=== PATIENT | female | born 1990 | race Caucasian/White ===

== ENCOUNTER 2018-09-16 07:44 | Inpatient (IN) | payer OTHER ==
--- NOTE | 2018-09-16 08:34 | HP ---
General Information - Reason for Visit Contractions starting at 0430 - General Information Maternal Age: 27 Grav: 2 Para: 1 SAB: 0 IEA: 0 Estimated Due Date: 09/17/18 Determined By: LMP Maternal Blood Type and Rh: A Positive - Results this Serology/RPR Result: Non-Reactive Rubella Result: Immune HBsAg Result: Negative HIV Result: Negative GBS Culture Result: Negative Past Medical History Delivery History: Hx Uncomplicated Vaginal Delivery Pertinent Past Medical History: Non-Contributory - eczema Pertinent Past Surgical History: See Records - wisdom tooth extraction Pertinent Family History: Non-Contributory - Antepartal Records Antepartal Records: Reviewed, Uncomplicated Review of Systems Constitutional: Comfortable CV Complaint: No Respiratory: Shortness of Breath: No Gastrointestinal: No Nausea/Vomiting, Diarrhea Genitourinary: No Dysuria, No Bleeding, No Leaking Fluid Musculoskeletal: No Epigastric Pain, Contractions Neurological: No Headache, No Visual Changes Movement: Normal Exam Allergies/Adverse Reactions: Allergies Penicillins Allergy (Verified 09/16/18 08:05) Hives T-98.5, BP-120/68, P-64 R-18 - Measurements Height: 5 ft 3 in Weight: 60.328 kg Weight in lbs: [id number] Body Mass Index (BMI): 23.6 Pre- Weight: 48.988 kg Weight Gained This : 25 lbs and 0 ozs - Exam Breast: Breast Exam Deferred CVA: No CVA Tenderness Extremities: No Edema Heart: Normal Rhythm/Heart Sounds HEENT: No Significant Findings Lungs: Clear Bilaterally Rectal: Rectal Exam Deferred Reflexes: DTR 2+ Thyroid: No Thyromegaly - Abdominal Exam Abdomen Exam: Non-Tender - Ultrasound/Biophysical Profile Ultrasound Status: Not Done Targeted Exam Findings See L&D Outpatient Visit Provider Note for Findings: N/A Estimated Weight: 6# Cervical Exam: 6cm Effacement: 100% Station: 0 Presenting Part: Vertex Membrane Status: Intact Bleeding/Discharge: None EFM Findings - External Monitor Findings Baseline Heart Rate: 125 External Monitor Findings: Accelerations Present, No Pattern of Variable or Late Decelerations, Variability Moderate, Baseline Stable Contractions: Regular, Strong, >90 Seconds Contraction Frequency: 3-4 minutes Assessment/Plan - Assessment at 39 6/7 in active labor with intact membranes, no evidence of acidemia - Plan Plan: Admit - Anticipate Vaginal Delivery - Date/Time of Admission Date of Admission: 09/16/18 Time of Admission: 08:00
[2018-09-16] MEDS ORDERED: Dibucaine 1% 28.35 GM TUBE PR PRN (10:54)
[2018-09-16] MEDS ORDERED: Acetaminophen TAB* 325 MG PO PRN (10:54)
[2018-09-16] MEDS ORDERED: Glycerin ADULT SUPP PR PRN (10:54)
[2018-09-16] MEDS ORDERED: Witch Hazel PAD* JAR TOPICAL PRN (10:54)
[2018-09-16] MEDS ORDERED: Ibuprofen TAB* 600 MG ONE (11:01)
[2018-09-16] MEDS: Ibuprofen TAB* 600 MG PO PRN (11:02)
--- NOTE | 2018-09-16 11:16 | PROCNOTE ---
[facility] OB: Delivery Note - Delivery A Date of : 09/16/18 Time of : 10:26 [place] Sex: Female Weight at : 8 lb Score 1 Minute: 9 Gestational Age in Weeks and Days at Delivery: 39 Weeks and 6 Days Delivery Method: Spontaneous Vaginal Labor: Spontaneous Did Patient attempt ?: N/A, No Previous Amniotic Fluid: Clear Estimated Blood Loss: 150 Anesthesia/Analgesia: None Delivered By: Shayla Terrazas - Nursery Level of Nursery: Regular/Bedside - Perineum Perineal Injury: None/Intact - Right labial abrasion, hemostatic and not repaired Perineal Repair: None - Events Delivery Events of Note: None Apply - Risk for Falls Other Risk for Falls: none - Additional Delivery Notes Additional Delivery Notes: Patient admitted in active labor, quickly into tub for pain management. Progression to complete with urge to push. LOL 5'36", pushed 8 min. Baby born OA to MELISA at 1026, shoulders following with maternal efforts. Mother reached down to pull baby up out of water to chest. Baby with spontaneous cry and eyes open immediately. HR>110. Patient moved @ approx 5 minutes to bed. Cord doubly clamped and cut by FOB. Placenta delivered Schultze with gentle cord traction @ 1036. Perineum intact. Fundus firm to massage. EBL 150ml. Baby "Massiel [place]" at breast to initiate . Mother and baby stable and well.
[2018-09-16] MEDS: Docusate CAP* 100 MG PO SCH ×2 (13:57→20:11)
[2018-09-17] MEDS: Ibuprofen TAB* 600 MG PO PRN ×3 (00:14→14:22)
[2018-09-17 06:22] LABS: ABS Basophils 0 10^3/ul (0-0.2); ABS Eosinophils 0 10^3/ul (0-0.6); ABS Lymphocytes 1.9 10^3/ul (1.0-4.8); ABS Monocytes 0.6 10^3/ul (0-0.8); ABS Neutrophils 7.5 10^3/ul (1.5-7.7); ABS Nucleated RBC 0 10^3/ul; Eosinophil % 0.3 % (0-6); Hematocrit 31 % (35-47); Hemoglobin 10.4 g/dl (12.0-16.0); Lymphocyte % 19.2 % (25-47); Mean Corpuscular HGB Conc 34 g/dl (31-36); Mean Corpuscular Hemoglobin 32 pg (27-31); Mean Corpuscular Volume 93 fL (80-97); Mean Platelet Volume 8.1 fL (7.4-10.4); Nucleated Red Blood Cells % 0.1; Platelet Count 210 10^3/ul (150-450); Red Blood Count 3.32 10^6/ul (4.00-5.40); Red Cell Distribution Width 15 % (10.5-15); White Blood Count 10.1 10^3/ul (3.5-10.8)
[2018-09-17 08:45] VITALS: BP 89/45
[2018-09-17] MEDS: Docusate CAP* 100 MG PO SCH ×2 (08:56→14:21)
[2018-09-17] MEDS ORDERED: Ferrous Gluconate TAB* 324 MG TAB PO SCH (09:00)
== END 2018-09-17 19:00 | disposition home or self-care (01) | DRG 560 ==
LOC: MCHOBOUT 07:44 → MCHOB 08:00
PROVIDERS: ADMIT Midwife; ATTEND Midwife
PROC: 10E0XZZ Delivery of Products of Conception, External Approach (ICD-10-PCS; principal; 2018-09-16)
DX: O70.0 First degree perineal laceration during delivery (principal); Z37.0 Single live birth; Z3A.39 39 weeks gestation of pregnancy
CPT/HCPCS: 36415; 85025; A9270-GY